=== PATIENT | male | born 1955 | race Caucasian/White ===

== ENCOUNTER → 2022-07-23 | Outpatient (CLI) | payer BC, MEDICARE ==
--- NOTE | 2022-07-24 07:49 | CTL ---
EXAMINATION TYPE: CT Low Dose Lung DATE OF EXAM ORDERED: 07/23/2022 HISTORY: Long-term tobacco use. Lung cancer screening CT DLP: 60.[address] CTDI: 1.5 mGy Automated exposure control for dose reduction was used. SCREENING VISIT: Baseline COMPARISON: Chest CT 2011 TECHNIQUE: Low dose computed tomography scan was performed through the chest at 1 mm thick sections a nd reconstructed images in multiple planes at 1 mm and [address] DIAGNOSTIC QUALITY: Satisfactory FINDINGS: LUNG NODULES: None. LUNGS: COPD: Severity: Mild Fibrosis: Severity: Mild biapical Lymph nodes: No greater than 1 cm Other findings: None RIGHT PLEURAL SPACE: Effusion: None Calcification: None Thickening: None Pneumothorax: None LEFT PLEURAL SPACE: Effusion: None Calcification: None Thickening: None Pneumothorax: None HEART: Heart Size: Normal Coronary Calcification: Minimal Pericardial Effusion: None OTHER FINDINGS: Upper abdomen: None Bony thorax: Slightly exaggerated thoracic kyphosis. Supraclavicular region: None Other: Mild calcification at level of the aortic valve IMPRESSION: No suspicious nodules CT LUNG RAD AND CT CHEST RECOMMENDATION: Lung-Rad 1 Negative: Continue annual screening with LDCT in 12 months. S Modifier (other clinically significant findings): None
== END | disposition home or self-care (01) ==
LOC: RADCTMAIN 07:05
PROVIDERS: ATTEND Family Medicine
DX: Z12.2 Encounter for screening for malignant neoplasm of respiratory organs (principal); Z87.891 Personal history of nicotine dependence
CPT/HCPCS: 71271

== ENCOUNTER → 2022-07-26 | Outpatient (CLI) | payer BC, MEDICARE ==
--- NOTE | 2022-07-26 08:47 | US ---
EXAMINATION TYPE: US duplex aorta DATE OF EXAM: 07/26/2022 COMPARISON: Low Dose CT CLINICAL HISTORY: Z13.6 ENCOUNTER FOR SCREENING FOR CARDIOVASCULAR D. AAA screening TECHNIQUE: Multiple sonographic images of the abdominal aorta are obtained. FINDINGS: EXAM MEASUREMENTS: Abdominal Aorta: Proximal: 2.0 x 2.2 cm Mid: 1.7 x 1.9 cm Distal: 1.8 x 2.0 cm Bifurcation: JAN: 1.1 x 1.0 cm BRENNON: 1.1 x 1.0 cm [employer] NOTES: No evidence of AAA, Wall calcifications Mild to moderate atherosclerotic calcification of the aorta. IMPRESSION: No ultrasound evidence for abdominal aortic aneurysm.
== END | disposition home or self-care (01) ==
LOC: RADUSWWP 08:16
PROVIDERS: ATTEND Family Medicine
DX: Z13.6 Encounter for screening for cardiovascular disorders (principal); F17.210 Nicotine dependence, cigarettes, uncomplicated
CPT/HCPCS: 93979